=== PATIENT | female | born 1980 | race American Indian/Alaskan Native ===

== ENCOUNTER 2018-12-05 18:44 | Emergency (ER) | payer SELFPAY ==
[2018-12-05 18:56] VITALS: BP 216/101
--- NOTE | 2018-12-05 18:58 | Event Note ---
ED Screening Note Date of service: 12/05/18 Time: 18:52 ED Screening Note: This is a 38 y.o. F. that presents to the ER with headache and elevated blood pressure. PMH HTN She reports taking part of her medication today. This initial assessment/diagnostic orders/clinical plan/treatment(s) is/are subject to change based on patients health status, clinical progression and re- assessment by fellow clinical providers in the ED. Further treatment and workup at subsequent clinical providers discretion. Patient/guardian urged not to elope from the ED as their condition may be serious if not clinically assessed and managed. Initial orders include: UA and test
== END 2018-12-05 19:32 | disposition left against medical advice (07) ==
LOC: ED 18:44
DX: R07.89 Other chest pain (principal); Z53.21 Procedure and treatment not carried out due to patient leaving prior to being seen by health care provider
CPT/HCPCS: 93005; 93010